=== PATIENT | female | born 1975 | race Two or more races ===

== ENCOUNTER 2017-05-05 09:49 | Emergency (ER) | payer MEDICAID ==
[~2017-05-05] VITALS: Ht 152.4 cm; Wt 86.2 kg
[~2017-05-05 09:49] MED LIST: PRED50TA PO
[2017-05-05 10:13] VITALS: BP 132/58
[2017-05-05] MEDS ORDERED: methylPREDNISolone SOD SUCC PF 125 MG/2 ML VIAL. IM ONE (10:30)
[2017-05-05] MEDS ORDERED: IPRATRPIUM/ALBUTEROL 0.5/2.5MG 3 ML NEBU. NEB ONE (10:30)
--- NOTE | 2017-05-05 10:36 | RAD ---
Chest, 2 views, 05/05/2017: History: Shortness of breath, asthma Comparison is made to a study from 08/29/2016. The heart size and pulmonary vascularity are normal. No pulmonary infiltrates are seen. There is no evidence of pleural fluid. Mild spurring is present in the spine. IMPRESSION: No acute cardiopulmonary abnormality is detected.
[2017-05-05] MEDS ORDERED: PRED20TA PO (11:01)
[2017-05-05] MEDS ORDERED: DOXY100T PO (11:01)
[2017-05-05] MEDS ORDERED: PROAIR HFA8.5 GM INH (11:01)
--- NOTE | 2017-05-05 11:02 | PHYS DOC ---
Past Medical History Past Medical History: Asthma, Diabetes-Type II, Hypothyroid Additional Past Medical Histor: fibroids Past Surgical History: , Tubal ligation Alcohol Use: Occasionally Drug Use: None Adult General Chief Complaint Chief Complaint: ASTHMA HPI HPI Patient is a 42 year old female with a history of asthma presents to the ED complaining of cough x 1 week. Review of Systems Review of Systems Constitutional: Denies fever or chills [] Eyes: Denies change in visual acuity, redness, or eye pain [] HENT: Denies nasal congestion or sore throat [] Respiratory: Complains of cough, Denies shortness of breath [] Cardiovascular: No additional information not addressed in HPI [] GI: Denies abdominal pain, nausea, vomiting, bloody stools or diarrhea [] : Denies dysuria or hematuria [] Musculoskeletal: Denies back pain or joint pain [] Integument: Denies rash or skin lesions [] Neurologic: Denies headache, focal weakness or sensory changes [] Endocrine: Denies polyuria or polydipsia [] Current Medications Current Medications Current Medications Medications (Trade) Dose Ordered Sig/Karen Start Time Stop Time Status Last Admin Dose Admin Albuterol/ Ipratropium (Duoneb) 3 ml 1X ONCE 05/05/17 10:30 05/05/17 10:31 DC Methylprednisolone Sodium Succinate (SOLU-Medrol 125MG VIAL) 125 mg 1X ONCE 05/05/17 10:30 05/05/17 10:31 DC 05/05/17 10:44 125 MG Allergies Allergies Allergies Coded Allergies Type Severity Reaction Last Updated Verified Penicillins Allergy Unknown 08/29/16 Yes codeine Allergy Unknown 08/29/16 Yes Physical Exam Physical Exam Constitutional: Well developed, well nourished, no acute distress, non-toxic appearance. [] HENT: Normocephalic, atraumatic, bilateral external ears normal, oropharynx moist, no oral exudates, nose normal. [] Eyes: PERRLA, EOMI, conjunctiva normal, no discharge. [] Neck: Normal range of motion, no tenderness, supple, no stridor. [] Cardiovascular:Heart rate regular rhythm, no murmur [] Lungs & Thorax: Bilateral breath sounds clear to auscultation [] Abdomen: Bowel sounds normal, soft, no tenderness, no masses, no pulsatile masses. [] Skin: Warm, dry, no erythema, no rash. [] Back: No tenderness, no CVA tenderness. [] Extremities: No tenderness, no cyanosis, no clubbing, ROM intact, no edema. [] Neurologic: Alert and oriented X 3, normal motor function, normal sensory function, no focal deficits noted. [] Psychologic: Affect normal, judgement normal, mood normal. [] Current Patient Data Vital Signs Vital Signs Date Time Temp Pulse Resp B/P (MAP) Pulse Ox O2 Delivery O2 Flow Rate FiO2 05/05/17 10:13 98.2 61 18 95 Room Air 98.2 EKG EKG [] Radiology/Procedures Radiology/Procedures []PROCEDURE: CHEST PA & LATERAL Chest, 2 views, 05/05/2017: History: Shortness of breath, asthma Comparison is made to a study from 08/29/2016. The heart size and pulmonary vascularity are normal. No pulmonary infiltrates are seen. There is no evidence of pleural fluid. Mild spurring is present in the spine. IMPRESSION: No acute cardiopulmonary abnormality is detected. Course & Med Decision Making Course & Med Decision Making Pertinent Labs and Imaging studies reviewed. (See chart for details) [] Dragon Disclaimer Dragon Disclaimer This electronic medical record was generated, in whole or in part, using a voice recognition dictation system. Departure Departure Impression: Primary Impression: Asthma exacerbation Disposition: 01 HOME, SELF-CARE Condition: IMPROVED Referrals: TYSON COLE MD (PCP) Patient Instructions: Asthma, Acute Bronchospasm Scripts Albuterol Sulfate (PROAIR HFA INHALER) 8.5 Gm Hfa.aer.ad 1 PUFF INH PRN Q6HRS Y for SHORTNESS OF BREATH, #1 INHALER 0 Refills Prov: KULDEEP VICKERS 05/05/17 Prednisone (PREDNISONE) 20 Mg Tablet 2 TAB PO DAILY, #10 TAB Prov: KULDEEP VICKERS 05/05/17 Doxycycline Hyclate (DOXYCYCLINE HYCLATE) 100 Mg Tablet 1 TAB PO BID, #20 TAB Prov: KULDEEP VICKERS 05/05/17 KULDEEP VICKERS May 05, 2017 11:02
== END 2017-05-05 11:28 | disposition home or self-care (01) ==
LOC: ER 09:49
DX: J45.901 Unspecified asthma with (acute) exacerbation (principal); E11.9 Type 2 diabetes mellitus without complications; E03.9 Hypothyroidism, unspecified; Z88.0 Allergy status to penicillin; Z88.5 Allergy status to narcotic agent
CPT/HCPCS: 71020; 94640; 96372; 99284; J2930; J7620

== ENCOUNTER 2017-11-26 09:54 | Emergency (ER) | payer OTHER, MEDICAID ==
[2017-11-26 10:28] LABS: NEGATIVE OBC STREP NEG; POSITIVE OBC STREP POS
== END 2017-11-26 10:49 | disposition home or self-care (01) ==
LOC: ER 09:54
DX: J06.9 Acute upper respiratory infection, unspecified (principal); J45.909 Unspecified asthma, uncomplicated; E11.9 Type 2 diabetes mellitus without complications; E03.9 Hypothyroidism, unspecified; Z88.0 Allergy status to penicillin; Z88.5 Allergy status to narcotic agent
CPT/HCPCS: 87070; 87880; 99283

== ENCOUNTER 2018-01-27 21:30 | Emergency (ER) | payer OTHER | END 2018-01-27 22:15 | disposition home or self-care (01) | LOC: ER 22:15 | DX: G56.02 Carpal tunnel syndrome, left upper limb (principal); J45.909 Unspecified asthma, uncomplicated; E11.9 Type 2 diabetes mellitus without complications; E03.9 Hypothyroidism, unspecified; Z98.51 Tubal ligation status; Z88.0 Allergy status to penicillin; Z88.5 Allergy status to narcotic agent | CPT/HCPCS: 29125; 99283 ==

== ENCOUNTER 2019-02-21 10:11 | Emergency (ER) | payer BC, OTHER ==
[~2019-02-21] VITALS: Ht 149.9 cm; Wt 81.6 kg
[~2019-02-21 10:11] MED LIST changes: +ALBU2.5V8 INH; +DOXY100T PO; +NAPR500T8 PO; +PRED20TA PO
[2019-02-21] MEDS ORDERED: predniSONE 10 MG TABLET PO ONE (11:00)
[2019-02-21] MEDS ORDERED: ALBUTEROL SULFATE 2.5 MG/3 ML NEBU. NEB ONE (11:00)
--- NOTE | 2019-02-21 11:27 | RAD ---
CHEST PA LATERAL History: Wheezing, asthma Comparison: 05/05/2017 two-view chest x-ray exam. Findings: The cardiomediastinal silhouette is normal. Pulmonary vasculature is normal. The lungs are clear. No pleural effusion or pneumothorax is seen. There is no acute bone abnormality. IMPRESSION: No acute cardiopulmonary process. Electronically signed by: Viet Soriano MD (02/21/2019 11:24 AM) [id number]
--- NOTE | 2019-02-21 11:32 | PHYS DOC ---
Past Medical History Past Medical History: Asthma, Diabetes-Type II, Hypothyroid, Other Additional Past Medical Histor: fibroids,NEUROPATHY Past Surgical History: , Tubal ligation Alcohol Use: Occasionally Drug Use: None Adult General Chief Complaint Chief Complaint: ASTHMA HPI HPI Patient is a 43 year old Female who presents with states she's had a history of asthma. Patient states she has not had to be on any steroids for very long time. Patient states last 3 days she's had chest tightness and wheezing she's been using her nebulizer at home every 3-4 hours. Patient states the last Treatment was at 6 AM. Patient denies fevers or recent illness but states she does have allergies. Review of Systems Review of Systems Constitutional: Denies fever or chills [] Eyes: Denies change in visual acuity, redness, or eye pain [] HENT: Denies nasal congestion or sore throat [] Respiratory: cough or shortness of breath [] Cardiovascular: No additional information not addressed in HPI [] GI: Denies abdominal pain, nausea, vomiting, bloody stools or diarrhea [] : Denies dysuria or hematuria [] Musculoskeletal: Denies back pain or joint pain [] Integument: Denies rash or skin lesions [] Neurologic: Denies headache, focal weakness or sensory changes [] All other systems were reviewed and found to be within normal limits, except as documented in this note. Current Medications Current Medications Current Medications Medications (Trade) Dose Ordered Sig/Karen Start Time Stop Time Status Last Admin Dose Admin Albuterol Sulfate (Ventolin Neb Soln) 10 mg 1X ONCE 02/21/19 12:15 02/21/19 12:16 DC 02/21/19 11:57 10 MG Prednisone (Prednisone) 50 mg 1X ONCE 02/21/19 11:00 02/21/19 11:02 DC 02/21/19 11:16 50 MG Allergies Allergies Allergies Coded Allergies Type Severity Reaction Last Updated Verified Penicillins Allergy Intermediate 02/21/19 Yes codeine Allergy Intermediate 02/21/19 Yes Physical Exam Physical Exam Constitutional: Well developed, well nourished, no acute distress, non-toxic appearance. [] HENT: Normocephalic, atraumatic, bilateral external ears normal, oropharynx moist, no oral exudates, nose normal. [] Eyes: PERRLA, EOMI, conjunctiva normal, no discharge. [] Neck: Normal range of motion, no tenderness, supple, no stridor. [] Cardiovascular:Heart rate regular rhythm, no murmur [] Lungs & Thorax: Bilateral breath sounds inspiratory and expiratory wheezes to auscultation [] Abdomen: Bowel sounds normal, soft, no tenderness, no masses, no pulsatile masses. [] Skin: Warm, dry, no erythema, no rash. [] Back: No tenderness, no CVA tenderness. [] Extremities: No tenderness, no cyanosis, no clubbing, ROM intact, no edema. [] Neurologic: Alert and oriented X 3, normal motor function, normal sensory function, no focal deficits noted. [] Psychologic: Affect normal, judgement normal, mood normal. [] Current Patient Data Vital Signs Vital Signs Date Time Temp Pulse Resp B/P (MAP) Pulse Ox O2 Delivery O2 Flow Rate FiO2 02/21/19 11:18 97 Room Air 02/21/19 10:53 98.5 84 20 122/77 (92) 98.5 Lab Values Laboratory Tests Test 02/21/19 10:57 POC Urine HCG, Qualitative Hcg negative (Negative) EKG EKG [] Radiology/Procedures Radiology/Procedures [] Impressions: [facility] [address] [place], [place] [id number] IMAGING REPORT Signed PATIENT: NERY RODRIGUES ACCOUNT: [id number] : 1975 LOCATION: ER AGE: 43 SEX: F EXAM STATUS: REG ER ORD. PHYSICIAN: CATHERINE MENEZES APRN REASON: ASTHMA, WHEEZING SOA PROCEDURE: CHEST PA & LATERAL CHEST PA LATERAL History: Wheezing, asthma Comparison: 05/05/2017 two-view chest x-ray exam. Findings: The cardiomediastinal silhouette is normal. Pulmonary vasculature is normal. The lungs are clear. No pleural effusion or pneumothorax is seen. There is no acute bone abnormality. IMPRESSION: No acute cardiopulmonary process. Electronically signed by: Viet Puri MD (02/21/2019 11:24 AM) [id number] DICTATED and SIGNED BY: VIET PURI MD DATE: 02/21/19 1124 Course & Med Decision Making Course & Med Decision Making Patient is a 43 year old Female who presents with states she's had a history of asthma. Patient states she has not had to be on any steroids for very long time. Patient states last 3 days she's had chest tightness and wheezing she's been using her nebulizer at home every 3-4 hours. Patient states the last Treatment was at 6 AM. Patient denies fevers or recent illness but states she does have allergies. Alert and oriented. Skin pink warm and dry. Mucous membranes are moist. Lungs have inspiratory and expiratory respiratory wheezing throughout all lobes. No extremity swelling. Heart rate regular without murmur. Vital signs within normal limits. Patient is satting 93% on room air. Ambulatory with a steady gait. Speaks in full clear sentences. Chest x-ray shows no acute findings. After first breathing treatment she states she is feeling slightly better. Lung sounds have wheezes in upper lobes bilaterally but lower lobes sound clear. I have ordered a hour-long nebulizer f or the patient. Patient states she is feeling much better after her hour-long treatment. Lung sounds have improved and she has improved airflow. Wheezes have improved but are still heard as described above. Patient oxygenation is 99% on room air. Dragon Disclaimer Dragon Disclaimer This electronic medical record was generated, in whole or in part, using a voice recognition dictation system. Departure Departure Impression: Primary Impression: Asthma exacerbation Disposition: 01 HOME, SELF-CARE Condition: STABLE Referrals: THIERNO VOGEL APRN (PCP) Patient Instructions: Asthma, Adult Additional Instructions: Follow-up with primary care provider. Take medications as prescribed. Return if increased shortness of air and nebulizers are not working. Scripts Albuterol Sulfate (Proair Hfa) 8.5 Gm Hfa.aer.ad 1 PUFF INH PRN Q6HRS PRN for SHORTNESS OF BREATH, #1 INHALER Prov: CATHERINE MENEZES APRN 02/21/19 Albuterol Sulfate (ALBUTEROL SULFATE NEB SOLN) 2.5 Mg/3 Ml Vial.neb 1 VIAL NEB PRN Q4HRS, #50 VIAL Prov: CATHERINE MENEZES APRN 02/21/19 Prednisone (PREDNISONE) 50 Mg Tablet 50 MG PO DAILY for 4 Days, #4 TAB Prov: CATHERINE MENEZES APRN 02/21/19 Problem Qualifiers Primary Impression: Asthma exacerbation Asthma severity: mild Asthma persistence: intermittent Qualified Codes: J45.21 - Mild intermittent asthma with (acute) exacerbation CATHERINE MENEZES FNPS Feb 21, 2019 11:32
[2019-02-21] MEDS ORDERED: ALBUTEROL SULFATE 2.5 MG/3 ML NEBU. CONT NEB ONE (12:15)
[2019-02-21] MEDS ORDERED: ALBU2.5V5 NEB (13:02)
[2019-02-21] MEDS ORDERED: PRED50TA PO (13:02)
[2019-02-21] MEDS ORDERED: ALBU2.5V8 INH (13:02)
[2019-02-21 14:01] VITALS: BP 132/70
[2019-02-21] MEDS ORDERED: ORPH100T PO (18:33)
== END 2019-02-21 14:07 | disposition home or self-care (01) ==
LOC: ER 10:11
DX: J45.21 Mild intermittent asthma with (acute) exacerbation (principal); E03.9 Hypothyroidism, unspecified; E11.40 Type 2 diabetes mellitus with diabetic neuropathy, unspecified; Z90.89 Acquired absence of other organs; Z98.890 Other specified postprocedural states; Z88.0 Allergy status to penicillin; Z88.5 Allergy status to narcotic agent
CPT/HCPCS: 71046; 81025; 82962; 94640; 94644; 99285; J7512; J7613; 99284

== ENCOUNTER 2019-02-21 17:46 | Emergency (ER) | payer BC ==
[~2019-02-21] VITALS: Ht 149.9 cm; Wt 81.6 kg
[~2019-02-21 17:46] MED LIST changes: +ALBU2.5V5 NEB
[2019-02-21 17:50] VITALS: BP 161/74
[2019-02-21] MEDS ORDERED: IV NORMAL SALINE 1000ML BAG 1,000 ML IV ONE (18:00)
--- NOTE | 2019-02-21 18:07 | PHYS DOC ---
Past Medical History Past Medical History: Asthma, Diabetes-Type II, Hypothyroid, Other Additional Past Medical Histor: fibroids,NEUROPATHY,CARPAL TUNNEL BILATERAL HANDS Past Surgical History: , Tubal ligation Alcohol Use: Occasionally Drug Use: None Adult General Chief Complaint Chief Complaint: MUSCLE SPASM/CRAMP [facility] HPI Patient is a 43 year old female who presents with returning to the ED was seen earlier today for asthma exacerbation. Patient is currently on nebulized treatments every 4-6 hours for her asthma exacerbation. Patient states when she got home she began cooking dinner and began having a contraction type muscle spasm in her left hand. Patient states she took a naproxen and the hand has relaxed and is feeling better. Patient currently rates her pain a 5 out of 10. Review of Systems Review of Systems Constitutional: Denies fever or chills [] Eyes: Denies change in visual acuity, redness, or eye pain [] HENT: Denies nasal congestion or sore throat [] Respiratory: Denies cough or shortness of breath [] Cardiovascular: No additional information not addressed in HPI [] GI: Denies abdominal pain, nausea, vomiting, bloody stools or diarrhea [] : Denies dysuria or hematuria [] Musculoskeletal: Left hand muscle cramp. Denies back pain or joint pain [] Integument: Denies rash or skin lesions [] Neurologic: Denies headache, focal weakness or sensory changes [] Endocrine: Denies polyuria or polydipsia [] All other systems were reviewed and found to be within normal limits, except as documented in this note. Current Medications Current Medications Current Medications Medications (Trade) Dose Ordered Sig/[facility] Start Time Stop Time Status Last Admin Dose Admin Sodium Chloride 1,000 ml @ 1,000 mls/hr 1X ONCE 02/21/19 18:00 02/21/19 18:03 DC Allergies Allergies Allergies Coded Allergies Type Severity Reaction Last Updated Verified Penicillins Allergy Intermediate 02/21/19 Yes codeine Allergy Intermediate 02/21/19 Yes Physical Exam Physical Exam Constitutional: Well developed, well nourished, no acute distress, non-toxic appearance. [] HENT: Normocephalic, atraumatic, bilateral external ears normal, oropharynx moist, no oral exudates, nose normal. [] Eyes: PERRLA, EOMI, conjunctiva normal, no discharge. [] Neck: Normal range of motion, no tenderness, supple, no stridor. [] Cardiovascular:Heart rate regular rhythm, no murmur [] Lungs & Thorax: Bilateral breath sounds clear to auscultation [] Abdomen: Bowel sounds normal, soft, no tenderness, no masses, no pulsatile masses. [] Skin: Warm, dry, no erythema, no rash. [] Back: No tenderness, no CVA tenderness. [] Extremities: Dorsal right hand tenderness, no cyanosis, no clubbing, ROM intact, no edema. [] Neurologic: Alert and oriented X 3, normal motor function, normal sensory function, no focal deficits noted. [] Psychologic: Affect normal, judgement normal, mood normal. [] Current Patient Data Vital Signs Vital Signs Date Time Temp Pulse Resp B/P (MAP) Pulse Ox O2 Delivery O2 Flow Rate FiO2 02/21/19 17:50 97.6 99 18 161/74 (103) 96 Room Air 97.6 EKG EKG [] Radiology/Procedures Radiology/Procedures [] Course & Med Decision Making Course & Med Decision Making Patient is a 43 year old female who presents with returning to the ED was seen earlier today for asthma exacerbation. Patient is currently on nebulized treatments every 4-6 hours for her asthma exacerbation. Patient states when she got home she began cooking dinner and began having a contraction type muscle spasm in her left hand. Patient states she took a naproxen and the hand has relaxed and is feeling better. Patient currently rates her pain a 5 out of 10. Alert and oriented. I with a steady gait. Patient has some tenderness to palpation to the dorsal hand from the cramping and the left hand. The left hand is now relaxed patient can move the left hand at all joints and fingers. Skin is pink warm and dry. There is no swelling to the extremity. Radial pulses strong and present. Patient is told that albuterol can cause muscle cramping and she is currently on Monday high doses of albuterol due to her asthma exacerbation. I will do blood work to check electrolytes and I explained to patient of why I would like to do blood work as her electrolytes could be off causing this issue. Patient refusing blood work or needle pokes by nursing and states she wants to go to her primary care provider. Patient is discharged home with muscle relaxer. Patient to follow up with primary care. Jessy Disclaimer Dragon Disclaimer This electronic medical record was generated, in whole or in part, using a voice recognition dictation system. Departure Departure Impression: Primary Impression: Muscle spasm Disposition: 01 HOME, SELF-CARE Condition: STABLE Referrals: THIERNO VOGEL APRN (PCP) Patient Instructions: Muscle Cramps Additional Instructions: Follow up with primary care provider. Scripts Orphenadrine Citrate (ORPHENADRINE CITRATE) 100 Mg Tablet.er 1 TAB PO BID, #10 TAB Prov: CATHERINE MENEZES APRN 02/21/19 CATHERINE MENEZES APRN Feb 21, 2019 18:07
[2019-02-21] MEDS ORDERED: ORPH100T PO (18:33)
== END 2019-02-21 18:39 | disposition home or self-care (01) ==
LOC: ER 17:46
DX: M62.838 Other muscle spasm (principal); J45.901 Unspecified asthma with (acute) exacerbation; E11.40 Type 2 diabetes mellitus with diabetic neuropathy, unspecified; E03.9 Hypothyroidism, unspecified; Z98.890 Other specified postprocedural states; Z98.51 Tubal ligation status; Z88.0 Allergy status to penicillin; Z88.5 Allergy status to narcotic agent
CPT/HCPCS: 99283

== ENCOUNTER 2019-04-28 08:39 | Emergency (ER) | payer BC ==
[~2019-04-28] VITALS: Ht 149.9 cm; Wt 89.0 kg
[~2019-04-28 08:39] MED LIST changes: +ORPH100T PO
[2019-04-28 08:52] VITALS: BP 142/85
[2019-04-28] MEDS ORDERED: KETOROLAC 30 MG/ML VIAL. IM ONE (09:15)
[2019-04-28] MEDS ORDERED: ORPHENADRINE CITRATE 60 MG/2 ML VIAL. IM ONE (09:15)
[2019-04-28] MEDS ORDERED: NAPR-514 PO (09:20)
[2019-04-28] MEDS ORDERED: ORPH100T PO (09:20)
--- NOTE | 2019-04-28 09:20 | PHYS DOC ---
Past Medical History Past Medical History: Asthma, Diabetes-Type II, Hypothyroid, Other Additional Past Medical Histor: fibroids,NEUROPATHY,CARPAL TUNNEL BILATERAL HANDS Past Surgical History: , Tubal ligation Alcohol Use: Occasionally Drug Use: None Adult General Chief Complaint Chief Complaint: SHOULDER INJURY [facility] HPI Patient is a 44 year old female, accompanied by her spouse, who presents to the emergency department with complaints of right shoulder and neck pain for the last 2 days. Patient denies any known injury, recent heavy lifting, or overuse of the affected arm. She states that she woke up like this yesterday. She currently rates her pain as 8 out of 10 on the pain scale, there are no alleviating factors, pain increases with movement of her neck and movement of her right arm. She denies any numbness, tingling, or weakness of the affected extremity. Review of Systems Review of Systems Constitutional: Denies fever or chills [] Eyes: Denies redness, or eye pain [] HENT: Denies nasal congestion or sore throat [] Respiratory: Denies cough or shortness of breath [] Cardiovascular: No additional information not addressed in HPI [] GI: Denies abdominal pain, nausea, or vomiting Musculoskeletal: Denies back pain; see history of present illness Integument: Denies rash or skin lesions [] Neurologic: Denies headache, focal weakness or sensory changes [] Complete systems were reviewed and found to be within normal limits, except as documented in this note. Allergies Allergies Allergies Coded Allergies Type Severity Reaction Last Updated Verified Penicillins Allergy Intermediate 02/21/19 Yes codeine Allergy Intermediate 02/21/19 Yes Physical Exam Physical Exam Constitutional: Well developed, well nourished, no acute distress, non-toxic appearance. [] HENT: Normocephalic, atraumatic, bilateral external ears normal, nose normal. [] Eyes: PERRLA, EOMI, conjunctiva normal, no discharge. [] Neck: Normal range of motion, supple, no stridor; R trapezius muscle tenderness to palpation, R cervical paraspinal TTP Cardiovascular:Heart rate regular rhythm Lungs & Thorax: Respirations even and unlabored, no retractions, no respiratory distress Skin: Warm, dry, no erythema, no rash. [] Back: No bony tenderness Extremities: No tenderness, no cyanosis, ROM intact, no edema. [] Neurologic: Alert and oriented X 3, no focal deficits noted. [] Psychologic: Affect normal, judgement normal, mood normal. [] Current Patient Data Vital Signs Vital Signs Date Time Temp Pulse Resp B/P (MAP) Pulse Ox O2 Delivery O2 Flow Rate FiO2 04/28/19 08:52 98.0 72 17 142/85 (104) 98 Room Air 98.0 EKG EKG [] Radiology/Procedures Radiology/Procedures [] Course & Med Decision Making Course & Med Decision Making Pertinent Labs and Imaging studies reviewed. (See chart for details) [] Dragon Disclaimer Dragon Disclaimer This electronic medical record was generated, in whole or in part, using a voice recognition dictation system. Departure Departure Impression: Primary Impression: Strain of right trapezius muscle Disposition: HOME, SELF-CARE Condition: STABLE Referrals: THIERNO VOGEL APRN (PCP) Patient Instructions: Cervical Sprain, [id number] Additional Instructions: Fill the prescriptions and take as directed. Apply heat or ice to sore areas as needed for comfort. Recommend frequent stretching. Follow up with your doctor in 1-2 days if symptoms persist, return to the ER if symptoms worsen. Scripts Naproxen (NAPROXEN) 500 Mg Tablet 1 TAB PO BID for 10 Days, #20 TAB 0 Refills Prov: RODRIGUEZ HERNANDEZ APRN 04/28/19 Orphenadrine Citrate (ORPHENADRINE CITRATE) 100 Mg Tablet.er 1 TAB PO BID PRN for PAIN for 10 Days, #20 TAB 0 Refills Prov: RODRIGUEZ HERNANDEZ APRN 04/28/19 Problem Qualifiers Primary Impression: Strain of right trapezius muscle Encounter type: initial encounter Qualified Codes: S46.811A - Strain of other muscles, fascia and tendons at shoulder and upper arm level, right arm, initial encounter RODRIGUEZ HERNANDEZ APRN Apr 28, 2019 09:20
== END 2019-04-28 09:30 | disposition home or self-care (01) ==
LOC: ER 08:39
DX: S46.811A Strain of other muscles, fascia and tendons at shoulder and upper arm level, right arm, initial encounter (principal); M54.2 Cervicalgia; J45.909 Unspecified asthma, uncomplicated; E11.40 Type 2 diabetes mellitus with diabetic neuropathy, unspecified; E03.9 Hypothyroidism, unspecified; Z98.890 Other specified postprocedural states; Z98.51 Tubal ligation status; Z88.0 Allergy status to penicillin; Z88.5 Allergy status to narcotic agent; X50.9XXA Other and unspecified overexertion or strenuous movements or postures, initial encounter; Y93.89 Activity, other specified; Y92.89 Other specified places as the place of occurrence of the external cause; Y99.8 Other external cause status
CPT/HCPCS: 96372; 99284; J1885; J2360